=== PATIENT | male | born 1980 | race Hispanic/Latino ===

== ENCOUNTER 2017-09-18 22:50 | Emergency (ER) | payer SELFPAY ==
[2017-09-18 22:52] VITALS: BMI 23.6
[2017-09-18 22:58] VITALS: RESP 18; TEMP 98.2
--- NOTE | 2017-09-18 23:32 | ED PDOC ---
Arrival/HPI - General Chief Complaint: Substance Abuse Time Seen by Provider: 09/18/17 22:51 Historian: Patient - History of Present Illness Narrative History of Present Illness (Text): 09/18/17 23:03 36 year old male, with no significant past medical history, presents to the emergency department by EMS for heroin overdose. Patient was given 2mg of Narcan intranasally on the field. Patient reports he sniffed an unknown amount of heroin and reports it was his first time. Patient denies any other drug use tonight, but reports drinking beer. Patient feel better and denies any fever, chills, chest pain, shortness of breath, nausea, vomiting, diarrhea, urinary symptoms, back pain, neck pain, headache, dizziness, or any other complaints. refuses labs imaging in er, ok with observation. 09/19/17 06:34 Symptom Onset: Gradual Symptom Course: Resolved Activities at Onset: Light Context: Home Past Medical History - Provider Review Nursing Documentation Reviewed: Yes - Psychiatric Hx Substance Use: Yes Family/Social History - Physician Review Nursing Documentation Reviewed: Yes Family/Social History: No Known Family HX Smoking Status: Never Smoked Hx Alcohol Use: Yes Hx Substance Use: Yes Substance used: meth, heroin Allergies/Home Meds Allergies/Adverse Reactions: Allergies No Known Allergies Allergy (Verified 09/18/17 22:52) Home Medications: Home Meds Medication Instructions Recorded Confirmed No Known Home Med 09/18/17 09/18/17 Review of Systems - Physician Review All systems were reviewed & negative as marked: Yes - Review of Systems Constitutional: absent: Fevers, Other (Chills) Respiratory: absent: SOB Cardiovascular: absent: Chest Pain Gastrointestinal: absent: Diarrhea, Nausea, Vomiting Genitourinary Male: absent: Dysuria, Frequency, Hematuria Musculoskeletal: absent: Back Pain, Neck Pain Neurological: absent: Headache, Dizziness Physical Exam Vital Signs Reviewed: Yes Vital Signs Temp Pulse Resp BP Pulse Ox 09/19/17 05:49 79 18 128/60 95 09/19/17 04:07 77 18 118/72 95 09/19/17 01:00 89 16 114/78 93 L 09/18/17 22:56 98.2 F 103 H 18 136/89 90 L Temperature: Afebrile Blood Pressure: Normal Pulse: Tachycardic Respiratory Rate: Normal Appearance: Positive for: Well-Appearing, Non-Toxic, Comfortable Pain Distress: None Mental Status: Positive for: Alert and Oriented X 3 Finger Stick Blood Glucose: 132 - Systems Exam Head: Present: Atraumatic, Normocephalic Pupils: Present: PERRL Extroacular Muscles: Present: EOMI Conjunctiva: Present: Normal Mouth: Present: Moist Mucous Membranes Neck: Present: Normal Range of Motion Respiratory/Chest: Present: Clear to Auscultation, Good Air Exchange. No: Respiratory Distress, Accessory Muscle Use Cardiovascular: Present: Regular Rate and Rhythm, Normal S1, S2. No: Murmurs Abdomen: No: Tenderness, Distention, Peritoneal Signs Back: Present: Normal Inspection Upper Extremity: Present: Normal Inspection. No: Cyanosis, Edema Lower Extremity: Present: Normal Inspection. No: Edema Neurological: Present: GCS=15, CN II-XII Intact, Speech Normal Skin: Present: Warm, Dry, Normal Color. No: Rashes Psychiatric: Present: Alert, Oriented x 3, Normal Insight, Normal Concentration Medical Decision Making ED Course and Treatment: 09/18/17 23:03 Impression: 36 year old male presents for heroin overdose. Patient was given 2mg of Narcan on the field and feels better. refuses any labs cxr in er, ok with observation Plan: -- Finger Stick -- Reassess and disposition Progress Notes: Patient is awake and oriented. States he feels better and agrees to remain in the ER for observation. 09/18/17 23:53 On re-evaluation, patient denies any complaints. Patient is easily arousable. He is awake, alert, and with no complaints. 09/19/17 00:35 On re-evaluation, patient is awake, alert, and in no acute distress. again refuses any labs imaging, but ok with futher obs. 09/19/17 01:51 On re-evaluation, patient is sleeping in no acute distress. Patient is Easily arousable. 09/19/17 05:46 On re-evaluation, patient feels better and is in no acute distress. I have discussed the results and plan with the patient, who expresses understanding. Patient in agreement with plan to be discharged home. Patient is stable for discharge. Patient was instructed to follow up with physician or return if symptoms worsen or new concerning symptoms arise. 09/19/17 06:33 ambulatory steady gait askign for dc. noted inital 02 sat low 90s on arrival. on dc 95 % ra. refsues cxr imaging. 09/19/17 06:34 - Scribe Statement The provider has reviewed the documentation as recorded by the Antonioibderek Vital Provider Scribe Attestation: All medical record entries made by the Scribe were at my direction and personally dictated by me. I have reviewed the chart and agree that the record accurately reflects my personal performance of the history, physical exam, medical decision making, and the department course for this patient. I have also personally directed, reviewed, and agree with the discharge instructions and disposition. Disposition/Present on Arrival - Present on Arrival Any Indicators Present on Arrival: No History of DVT/PE: No History of Uncontrolled Diabetes: No Urinary Catheter: No History of Decub. Ulcer: No History Surgical Site Infection Following: None - Disposition Have Diagnosis and Disposition been Completed?: Yes Diagnosis: Heroin overdose Disposition: HOME/ ROUTINE Disposition Time: 05:00 Condition: STABLE Discharge Instructions (ExitCare): Drug Abuse and Drug Addiction (DC), Narcotic Overdose Additional Instructions: please follow up with your doctor return to any er with any worsening symptoms or concerns. you are declining any lab testing and imaging. return to any er with worsening symptoms or concerns. Referrals: [facility] [Outside] - Follow up with primary [facility] [Outside] - Follow up with primary Forms: [employer] (Russian)
[2017-09-19 04:07] VITALS: O2SAT 95
[2017-09-19 05:50] VITALS: BP 128/60; PULSE 79
== END 2017-09-19 05:55 | disposition home or self-care (01) ==
LOC: ED 22:50
DX: T40.1X1A Poisoning by heroin, accidental (unintentional), initial encounter (principal)